=== PATIENT | male | born 1975 | race Caucasian/White ===

== ENCOUNTER 2024-03-10 11:27 | Emergency (ER) | payer OTHER, SELFPAY ==
[2024-03-10 11:28] VITALS: BP 158/94
--- NOTE | 2024-03-10 11:42 | ED.GENMED ---
History of Present Illness
General
Chief Complaint: DVT/Possible Blood Clot
Source: patient
Exam Limitations: none
Time Seen by Provider: 03/10/24 11:34
History of Present Illness
History of Present Illness:
48-year-old male presents complaining of pain to the right calf and thigh but he woke up this morning with. 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 He is prescribed Eliquis. Admits to not being very compliant. He
forgets to take it at times. He denies chest pain or shortness of breath. He does note some swelling in his leg. No other complaints at this time.
Past History
Past History
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
ED Past Surgical History: Other (larynoscopy w/ vocal chord polypectomy X 15)
Social History
Tobacco: Non-smoker
Drug: None
Personal:
Living: with family
Employment: Employed
Phy Exam
Physical Exam
Physical Exam:
General: Well-appearing male no acute respiratory distress
HEENT: Normocephalic atraumatic
Musculoskeletal exam: Some tenderness to the right posterior calf. The knee is without effusion. The ankle is nontender
Vascular: 2+ dorsalis pedis pulse right foot without obvious pitting edema neurologic: Good sensation right leg
Skin is intact without erythema
Course
Orders/Labs/Results
Orders:
Orders
03/10/24
US Periph Venous LOWER Ext RT Urgent
Comment:
Reason For Exam: right calf swelling with pain
Vital Signs
Initial and Last Documented VS:
Initial Vital Signs
Temp Pulse Resp BP Pulse Ox
98.0 F 70 16 158/94 98
03/10/24 11:28 03/10/24 11:28 03/10/24 11:28 03/10/24 11:28 03/10/24 11:28
Last Documented Vital Signs
Temp Pulse Resp BP Pulse Ox
98.0 F 70 16 158/94 98
03/10/24 11:28 03/10/24 11:28 03/10/24 11:28 03/10/24 11:28 03/10/24 11:28
MDM/Problems Addressed
Differential Diagnosis Includes:
Atraumatic right leg pain. Consider recurrent DVT versus muscular strain versus radiculopathy
Venous ultrasound pending
*Critical Care Note
Total Time (30-74mins, 75-104mins- exclusive of procedures): Not Applicable
Update Note
Update Note:
Venous ultrasound negative for DVT. Suspect possible radiculopathy versus muscular strain. No indication for admission or further imaging. Stable for discharge
ED Attending Note
-
Portions of this chart may have been created with voice recognition software.� Occasional wrong word or��sound alike� substitutions may have occurred due to the inherent limitations of voice recognition software.
Discharge Plan
Departure
Patient Disposition: Home (Routine Discharge)
Date of Disposition: 03/10/24
Time of Disposition: 12:56
Patient with high blood pressure during this ER visit?: No
Discharge Problem:
Acute leg pain
Prescriptions:
No Action
loratadine 10 MG tablet
10 mg PO DAILYPRN PRN (Reason: spring and fall)
apixaban [Eliquis DVT-PE Treat 30D Start] 5 MG tablets,dose pack
5 - 10 mg PO DIRECTED Qty: 1 0RF
Referrals:
Kenroy So, DO [Family Provider] -
Activity Restrictions/Additional Instructions:
You may use Tylenol if needed for pain. Return for worsening symptoms otherwise follow-up with your doctor
Interventions
Interventions:
*Risk Screen - Suicide Last Done: 03/10/24 11:28
*General Assessment Last Done: 03/10/24 11:36
*Neglect/Abuse Screening Last Done: 03/10/24 11:28
ED- Fall Risk Assessment Last Done: 03/10/24 11:36
*ED COVID-19 Vaccine History Last Done: 03/10/24 11:36
ED- Cardiac Assessment Last Done: 03/10/24 11:36
ED- Pulmonary Assessment Last Done: 03/10/24 11:36
ED-Peripheral Vascular Assessment Last Done: 03/10/24 11:36
ED-Skin Assessment Last Done: 03/10/24 11:36
Discharge Date and Time
Print Language: PERSIAN
[2024-03-10 13:23] VITALS: BP 134/72
== END 2024-03-10 13:26 | disposition home or self-care (01) ==
LOC: EMR 11:27
PROVIDERS: EMERGENCY PHYSICIAN Student in an Organized Health Care Education/Training Program; FAMILY PHYSICIAN Family Medicine
DX: M79.604 Pain in right leg (principal); Z86.718 Personal history of other venous thrombosis and embolism
CPT/HCPCS: 99284; 93971

== ENCOUNTER 2024-07-09 08:07 | Emergency (ER) | payer OTHER, SELFPAY ==
[2024-07-09 08:08] VITALS: BP 146/104
--- NOTE | 2024-07-09 08:37 | ED.GENMED ---
History of Present Illness
General
Chief Complaint: DVT/Possible Blood Clot
Source: patient
Exam Limitations: none
Time Seen by Provider: 07/09/24 08:26
Nursing documentation reviewed up to this point in time: agreed with
History of Present Illness
History of Present Illness:
48-year-old male with history of DVT x 2 in his right leg following a knee surgery. He is historically noncompliant with his Eliquis and states he stopped his Eliquis earlier this week and presents for a cramp in his right leg. He denies chest
pain or shortness of breath.
Past History
Past History
ED Past Medical History: Other (vocal chord polyps, DVT right leg x 2)
ED Past Surgical History: Other (larynoscopy w/ vocal chord polypectomy X 15)
Social History
Tobacco: Non-smoker
Drug: None
Personal:
Living: with family
Employment: Employed
Review of Systems
Review of Systems
Allergies reviewed?: Yes
All Other Systems: ROS reviewed and negative except as documented in HPI and ROS
Constitutional: Denies fever
Respiratory: Denies trouble breathing
Cardiac: Denies chest pain
ABD/GI: Denies abdominal pain
Musculoskeletal: Reports other (Pain right calf)
Skin: Reports no symptoms
Neurological: Reports no symptoms
Phy Exam
Physical Exam
Physical Exam:
GENERAL: No acute distress. A&Ox3.
CONSTITUTIONAL: Afebrile.
EYES: clear, conjunctivae normal
ENMT: moist mucus membranes, Pharynx nl
RESPIRATORY: Regular respirations, nonlabored, lungs clear.
CARDIOVASCULAR: Regular rate and rhythm, no murmurs, no rubs.
GI: Soft, nontender, normal BS
MUSCULOSKELETAL: Moves with ease. Well perfused.
SKIN: Warm, dry, pink
PSYCH: Normal mood and affect. Well kept, interactive and appropriate
NEUROLOGIC: Awake, alert and oriented. No focal neurological deficits
Course
Orders/Labs/Results
Orders:
Orders
07/09/24 08:12
Periph Venous Lwr Ext Rt US [US Periph Venous LOWER Ext RT] Urgent
Comment: hx of DVT
Reason For Exam: cramping pain
Vital Signs
Initial and Last Documented VS:
Initial Vital Signs
Temp Pulse Resp BP Pulse Ox
97.6 F 77 18 146/104 100
07/09/24 08:08 07/09/24 08:08 07/09/24 08:08 07/09/24 08:08 07/09/24 08:08
Last Documented Vital Signs
Temp Pulse Resp BP Pulse Ox
97.6 F 77 18 146/104 100
07/09/24 08:08 07/09/24 08:08 07/09/24 08:08 07/09/24 08:08 07/09/24 08:08
MDM/Problems Addressed
Differential Diagnosis Includes:
DVT, muscle strain/cramp
MDM/Problems Addressed:
He is ' usually pretty good about taking my Eliquis, I might miss a dose here and there,' he states his general surgeon is wondering why he is still on the Eliquis since his last DVT was 2020. He admits he has not taken his Eliquis this past week.
Patient states he followed by Dr. Peterson for his DVTs, he had some blood work last week and they called him and said they want to get '1 more test,' he does not know what that test is.
Attempt x 3 to call
ED Attending Note
-
Portions of this chart may have been created with voice recognition software.� Occasional wrong word or��sound alike� substitutions may have occurred due to the inherent limitations of voice recognition software.
Discharge Plan
Departure
Patient Disposition: Home (Routine Discharge)
Date of Disposition: 07/09/24
Time of Disposition: 09:52
Patient with high blood pressure during this ER visit?: No
Condition: Good
Discharge Problem:
Acute pain of right lower extremity
Instructions: Lower Extremity Muscle Strain (DC), Muscle Spasm ED
Prescriptions:
No Action
loratadine 10 MG tablet
10 mg PO DAILYPRN PRN (Reason: spring and fall)
apixaban [Eliquis DVT-PE Treat 30D Start] 5 MG tablets,dose pack
5 - 10 mg PO DIRECTED Qty: 1 0RF
Referrals:
Kenroy So, DO [Family Provider] - As needed
Activity Restrictions/Additional Instructions:
As we discussed, you most likely strained the muscles of your leg during your increasing activity level. Your ultrasound shows no DVT.
Follow-up with Dr. Peterson and discuss your use of Eliquis.
Interventions
Interventions:
*Risk Screen - Suicide Last Done: 07/09/24 08:11
*Nursing Disposition Last Done: 07/09/24 10:26
Discharge Date and Time
Discharge Date/Time: 07/09/24 10:27
Print Language: TAJIK
--- NOTE | 2024-07-09 10:25 | EDRN ---
Documentation done for discharge purposes only by this RN. Patient seen by DRAWING BOX TENDER.
== END 2024-07-09 10:27 | disposition home or self-care (01) ==
LOC: EMR 08:07
PROVIDERS: EMERGENCY PHYSICIAN Emergency Medicine; FAMILY PHYSICIAN Family Medicine
DX: M79.661 Pain in right lower leg (principal); Z79.01 Long term (current) use of anticoagulants; Z86.718 Personal history of other venous thrombosis and embolism; Z91.148 Patient's other noncompliance with medication regimen for other reason
CPT/HCPCS: 99284; 93971

== ENCOUNTER 2024-09-25 06:02 | Day surgery (SDC) | payer OTHER, SELFPAY ==
[2024-09-18 12:39] VITALS: BMI 29.6
[2024-09-25 06:23] VITALS: BMI 29.6
[2024-09-25 06:24] VITALS: BP 143/94
[2024-09-25] MEDS: TYLENOL 1000 MG PO (06:25)
[2024-09-25] MEDS: NORMOSOL-R/PLASMALYTE-A 1000 IV (06:34)
--- NOTE | 2024-09-25 07:15 | W.SUR.PREOP ---
Pre-Operative Surgical Note
-
I have examined this patient prior to the performance of the scheduled procedure.
The patient's condition is unchanged from the time of the current History and
Physical and the patient is able to undergo the scheduled procedure.
--- NOTE | 2024-09-25 07:15 | HP.FOC2 ---
Focused History & Physical
Chief Complaint
HPI:
Chief Complaint: Umbilical hernia
HPI / Indication for Planned Procedure: This is a 48-year-old male with a symptomatic umbilical hernia
Relevant Past Medical History: Negative
Relevant Social History: Negative
Relevant Family History: Negative
Relevant Past Surgical History: Negative
Review of Systems
Review of Pertinent Systems: All Systems Negative
Medication
See Medication form for detailed medications: Yes
Medication List (including Herbals & OTC):
No Meds [No Current Medications] 09/19/24
Medications Reviewed: Yes
Allergies and Reactions
Patient has Allergies: Yes
Noted Allergies and Reactions:
Allergy/AdvReac Type Severity Reaction Status Date / Time
barron Allergy Intermediate Shortness Verified 09/25/24 06:17
of Breath
No Known Drug Allergies Allergy - Verified 09/25/24 06:17
seasonal Allergy sneezing, Uncoded 09/25/24 06:17
watery eyes
Pertinent Physical Exam
All Other Systems: Negative
Head/Neck: Normal
Diagnosis / Assessment
This is a 48-year-old male with a symptomatic umbilical hernia
Plan / Procedure
Will plan for an open umbilical hernia repair with possible mesh
Anesthesia/Sedation to be done by Anesthesia Provider: Yes
[2024-09-25 08:16] VITALS: BP 123/78
--- NOTE | 2024-09-25 08:18 | W.IMMPOSTOP ---
Surgical Immed Post Op Note
-
Primary Surgeon: Navi Chacko MD
Assisting Surgeon: None
Pre-op Diagnosis: Umbilical hernia
Post-op Diagnosis: Same
Procedure Performed: Open umbilical hernia repair with mesh
Anesthesia Type: General
Specimen / Cultures: None
Estimated Blood Loss: 1 cc
Complications: None
Operative Findings: 2 cm umbilical hernia containing incarcerated preperitoneal fat which was reduced. The preperitoneal space was developed and reinforced with a 5 x 5 cm Bard soft mesh. The defect was then closed with 2 [id number] 0 PDS
sutures.
--- NOTE | 2024-09-25 08:20 | OR.RPT ---
Operative Report
Operative Report
Patient Name: Foster Cook
: 1975
Date of Operation: 09/25/2024
Preoperative Diagnosis: Umbilical hernia
Postoperative Diagnosis: Same
Procedure(s):
Open umbilical hernia repair with mesh
Surgeon(s):
Dr. Chacko
Security And Compliance Analyst(s):
BRIDGER Deshpande
Anesthesia: General
Estimated Blood Loss: 1 cc
Urine Output: None
Drains/Lines/Implants: 5 cm round Bard Soft uncoated polypropylene mesh
Specimens: None
Indication for surgery:
The patient has a symptomatic umbilical hernia. After review of their therapeutic options, they elected to pursue open repair.
Operative Findings: 2 cm umbilical hernia containing incarcerated preperitoneal fat which was reduced. The preperitoneal space was developed and reinforced with a 5 x 5 cm Bard soft mesh. The defect was then closed with 2 [id number] 0 PDS
sutures.
Details of the operation:
After successful induction of anesthesia, the patient was prepped and draped in the supine position. A team timeout was performed confirming administration of DVT prophylaxis, IV antibiotics and SCDs. The skin was anesthetized with 0.25% Marcaine
and an infraumbilical incision was made and dissection carried down to the fascia. The hernia sac was then encircled and carefully dissected off of the umbilical stalk and debulked using 3-0 Vicryl ties before it was returned to the abdomen. The
defect measured 2 cm. The preperitoneal fat was dissected to create a pocket large enough to accommodate the 5 x 5 cm mesh to ensure the mesh laid completely flat. The defect was then closed in the transverse direction using x2 0 PDS sutures. The
umbilical stalk was then tacked down to the fascia with a 3-0 Vicryl suture. The dermis was then approximated with interrupted 3-0 Vicryl sutures followed by Dermabond. Once the glue had dried, we placed a folded up piece of gauze into the
umbilicus and covered it with a large Tegaderm dressing and then suctioned out the gauze to create a vacuum dressing to help obliterate the space. The patient returned to the Recovery Room in stable condition. Sponge and instrument counts were
correct. No specimens sent to Pathology.
I was the attending physician and performed the procedure with assistance of the PA above. The assistance of BRIDGER Deshpande was required due to the complexity of the procedure. During the procedure Anne assisted with retraction, resection, and
closure of the wound. I was present for all portions of the case.
Navi Chacko MD
[2024-09-25 08:30] VITALS: BP 126/82
[2024-09-25 08:45] VITALS: BP 121/90
[2024-09-25 09:00] VITALS: BP 124/85
[2024-09-25] MEDS: MOTRIN 600 MG PO (09:00)
[2024-09-25 09:15] VITALS: BP 128/94
== END 2024-09-25 09:55 | disposition home or self-care (01) ==
LOC: SDS 06:02
PROVIDERS: ATTENDING PHYSICIAN Surgery; FAMILY PHYSICIAN Family Medicine
DX: K42.9 Umbilical hernia without obstruction or gangrene (principal)
CPT/HCPCS: 49591; 36415; 93005

== ENCOUNTER → 2024-10-13 09:33 | Outpatient (REF) | payer OTHER, SELFPAY | LOC: RAD 09:33 | PROVIDERS: ATTENDING PHYSICIAN Student in an Organized Health Care Education/Training Program | DX: M79.604 Pain in right leg (principal); M79.605 Pain in left leg; R25.2 Cramp and spasm | CPT/HCPCS: 72110; 93971 ==